=== PATIENT | female | born 1955 | race African-American/Black ===

== ENCOUNTER 2019-11-08 19:06 | Emergency (ER) | payer SELFPAY ==
[2019-11-08 19:08] VITALS: BP 163/86; PULSE 88; RESP 18; TEMP 36.9; O2SAT 99
--- NOTE | 2019-11-08 20:15 | ED.GENADULT ---
HPI - General Adult General Chief complaint: Dental/Oral Stated complaint: Right Side Tooth Pain and Swelling Time Seen by Provider: 11/08/19 19:25 Source: patient Mode of arrival: ambulatory Limitations: no limitations History of Present Illness HPI narrative: Patient is a 64-year-old female who presents with right-sided facial pain and dental pain followed by the dental school patient was placed on amoxicillin Sunday but has had continued pain and swelling since patient denies any fever chills nausea vomiting presents in no distress has been taking ibuprofen with some improvement Related Data Home Medications Medication Instructions Recorded Confirmed amoxicillin 11/08/19 Allergies Allergy/AdvReac Type Severity Reaction Status Date / Time Sulfa (Sulfonamide Allergy Unknown Swelling Verified 11/08/19 19:52 Antibiotics) Review of Systems Review of Systems: All systems reviewed & are unremarkable except as noted in HPI and below PMFSH Past Medical History Medical History (Updated 11/08/19 @ 20:18 by Daniel Sandoval PA-C) Obese Social History Social History (Updated 11/08/19 @ 20:16 by Daniel Sandoval PA-C) Smoking status: Never smoker Gender identity (if verbalized by the patient): Female Exam Narrative: Exam Narrative: GENERAL: Well-appearing, well-nourished, and in no acute distress. HEAD: Normocephalic, atraumatic. Right-sided facial swelling without erythema or fluctuance EYES: PERRLA and EOMI. ENT: Nares clear, no rhinorrhea or epistaxis. Mucous membranes moist. Oropharynx without tonsillar hypertrophy exudate. Gross dental decay with tenderness along the right upper incisors NECK: Supple. No adenopathy or masses. CHEST: Clear to auscultation. No respiratory distress. No wheezes rales or rhonchi HEART: Regular rate and rhythm. No murmur heard. EXTREMITIES: Normal range of motion. No edema. SKIN: Warm, dry, no rash. NEURO: No focal deficits. Alert and oriented x3. Cranial nerves II through XII grossly intact PSYCH: Normal mood and affect. Course Course Emergency Course: Patient in the room in no distress aware of case findings treatment plan and diagnosis Vital Signs Vital signs: Vital Signs Temperature 98.5 F 11/08/19 19:08 Pulse Rate 88 11/08/19 19:08 Respiratory Rate 18 11/08/19 19:08 Blood Pressure 163/86 H 11/08/19 19:08 Pulse Oximetry 99 11/08/19 19:08 Temperature 98.5 F 11/08/19 19:08 Pulse Rate 88 11/08/19 19:08 Respiratory Rate 18 11/08/19 19:08 Blood Pressure 163/86 H 11/08/19 19:08 Pulse Oximetry 99 11/08/19 19:08 Procedures Other Procedure Procedure 1: Other Procedure: 18-gauge needle used to make single straight incision along the anterior upper incisors with purulence obtained Medical Decision Making MDM Narrative Medical decision making narrative: Patient in the room in no distress at this time with dental abscess single straight incision was used to I&D the abscess with purulence obtained patient will be continued on her antibiotics provided with reasons to return is felt appropriate for outpatient reevaluation with continued care by the dental school. Floor of the mouth is soft uvula midline no trismus or drooling Vital Signs Vital Signs: Vital Signs Temperature 98.5 F 11/08/19 19:08 Pulse Rate 88 11/08/19 19:08 Respiratory Rate 18 11/08/19 19:08 Blood Pressure 163/86 H 11/08/19 19:08 Pulse Oximetry 99 11/08/19 19:08 Temperature 98.5 F 11/08/19 19:08 Pulse Rate 88 11/08/19 19:08 Respiratory Rate 18 11/08/19 19:08 Blood Pressure 163/86 H 11/08/19 19:08 Pulse Oximetry 99 11/08/19 19:08 Discharge Plan Discharge Clinical Impression: Dental abscess Patient Disposition: Home, Self-Care Condition: Stable Instructions: Antibiotic Form, Dental Abscess (ED) Additional Instructions: Follow-up with dentistry in 1 week. go to ER for shortness of breath, diffi
== END 2019-11-08 20:33 | disposition home or self-care (01) ==
PROVIDERS: Emergency Provider Emergency Medicine; PCP Family Medicine
DX: K04.7 Periapical abscess without sinus (principal); E66.9 Obesity, unspecified; Z68.37 Body mass index [BMI] 37.0-37.9, adult
CPT/HCPCS: 41800; 99283; A9270

== ENCOUNTER 2020-08-10 14:27 | Outpatient (CLI) | payer OTHER, SELFPAY | END 2020-08-10 14:28 | disposition home or self-care (01) | LOC: ANHCOVIDVC 14:27 | PROVIDERS: PCP Family Medicine | DX: Z23 Encounter for immunization (principal) | CPT/HCPCS: 0001A; 91300 ==

== ENCOUNTER 2020-08-31 14:29 | Outpatient (CLI) | payer OTHER, SELFPAY | END 2020-08-31 14:30 | disposition home or self-care (01) | LOC: ANHCOVIDVC 14:30 | PROVIDERS: PCP Family Medicine | DX: Z23 Encounter for immunization (principal) | CPT/HCPCS: 0002A; 91300 ==

== ENCOUNTER 2020-09-25 15:57 | Emergency (ER) | payer SELFPAY ==
--- NOTE | ~2020-09-25 | XR_ITS ---
EXAMINATION: XR ankle RT min 3V, XR foot RT min 3V DATE: 09/25/2020 16:26 INDICATION: Right ankle injury after kicking a bedpost. TECHNIQUE: 1. Anteroposterior, mortise, additional oblique and lateral view of the right ankle were obtained. 2. Dorsoplantar, two oblique and lateral views of the right foot were obtained. COMPARISON: None. FINDINGS: Alignment of the foot and ankle is normal. No fracture or osteochondral lesion. Polyarticular osteoar thritis, mild at the first metatarsophalangeal joint and minimal at multiple additional joints right foot. No ankle joint effusion. Small to moderate-sized Achilles and plantar calcaneal spurs. Mild sof t tissue swelling about the lateral malleolus. IMPRESSION: 1. No acute osseous abnormality. Reviewed, dictated and finalized at location A. IMPRESSION: 1. No acute osseous abnormality.
[2020-09-25 16:14] VITALS: BP 147/65; PULSE 94; RESP 16; TEMP 36.9; O2SAT 99
--- NOTE | 2020-09-25 16:31 | ED.LOWEXIN ---
HPI - Extremity Injury (Lower) General Chief Complaint: Extremity Injury, Lower Stated Complaint: right foot pain Source: patient Mode of arrival: ambulatory Limitations: no limitations History of Present Illness HPI Narrative: Patient is a 64-year-old female who presents complaining of right foot pain. Patient reports trip and fall hitting right foot on bed approximately 3 days ago. She reports tenderness and difficulty with ambulation since. She denies other injuries. Patient is not on blood thinners. Patient is ambulating slowly with a cane. She reports history of fracture in same foot previously. She denies taking dhht-oml-dlsacxy medications for pain at this time. Related Data Home Medications Medication Instructions Recorded Confirmed cetirizine 10 mg capsule 10 mg PO DAILY 01/07/20 03/10/20 cyclobenzaprine 5 mg tablet 5 mg PO TID 01/07/20 03/10/20 epinephrine 0.3 mg/0.3 mL 0.3 mg IM ONCE 01/07/20 03/10/20 injection, auto-injector albuterol sulfate 90 mcg/actuation 1 puff INHALATION Q4H PRN 03/10/20 03/10/20 aerosol inhaler phentermine 37.5 mg capsule 37.5 mg PO DAILY 03/10/20 03/10/20 Allergies Allergy/AdvReac Type Severity Reaction Status Date / Time lisinopril Allergy Severe swelling ( Verified 03/10/20 08:22 reported by patient) naproxen Allergy Unknown sedation Verified 03/10/20 08:22 Sulfa (Sulfonamide Allergy Unknown Swelling Verified 03/10/20 08:22 Antibiotics) Review of Systems Review of Systems: Narrative: CONSTITUTIONAL: Denies fever, chills, or sweats. EYES: Denies visual changes, redness, or discharge. ENT: Denies rhinorrhea, congestion, sore throat, or otalgia. CARDIOVASCULAR: Denies chest pain, palpitations, or edema. RESPIRATORY: Denies cough or dyspnea. GASTROINTESTINAL: Denies abdominal pain, nausea, vomiting, or diarrhea. GENITOURINARY: Denies dysuria or hematuria. SKIN: Denies rash or itching. MUSCULOSKELETAL: Right foot pain NEUROLOGIC: Denies headache, numbness, dizziness, or weakness. PSYCHIATRIC: Denies anxiety or depression. [facility] Past Medical History Medical History Allergies Asthma Bilateral sacroiliitis (~2016) Obese Osteoporosis Rotator cuff arthropathy of both shoulders Surgical History Surgical History History of cholecystectomy History of endometrial ablation Hx of breast reduction, elective S/P foot surgery, right Family History Family History Mother Hypertension Cerebrovascular accident Father COPD (chronic obstructive pulmonary disease) Cirrhosis of liver Social History Social History Smoking status: Former smoker Tobacco type: cigarettes Alcohol intake: never Substance use: never Substance use type: does not use Gender identity (if verbalized by the patient): Female Spiritual care concerns: No Agree to blood products: Yes Comments At the time of signature, I have reviewed and agree with nursing past medical, surgical, social, and family history unless otherwise noted. Please see nursing chart for further information. There is no relevant family history pertinent to the presenting complaint. Exam Narrative: Exam Narrative: GENERAL: Well-appearing, well-nourished, and in no acute distress. HEAD: Normocephalic, atraumatic. EYES: EOMI. No redness or drainage. Conjunctiva are normal. ENT: Mucous membranes pink and moist. . CHEST: No respiratory distress. HEART: Regular rate and rhythm. MUSCULOSKELETAL: No bony tenderness. EXTREMITIES: Mild edema to right foot, tenderness with palpation at 1st metatarsal. Distal sensation intact, good capillary refill SKIN: Warm, dry, no rash. NEURO: No focal deficits. Alert and oriented x3. Gait steady. PSYCH: Normal affect. No signs of depression or anxiety
== END 2020-09-25 17:06 | disposition home or self-care (01) ==
PROVIDERS: Emergency Provider Nurse Practitioner; PCP Family Medicine
DX: S93.601A Unspecified sprain of right foot, initial encounter (principal); W01.0XXA Fall on same level from slipping, tripping and stumbling without subsequent striking against object, initial encounter; M19.071 Primary osteoarthritis, right ankle and foot; Z87.891 Personal history of nicotine dependence; J45.909 Unspecified asthma, uncomplicated; M81.0 Age-related osteoporosis without current pathological fracture
CPT/HCPCS: 73610; 73630; 99213; G0463

== ENCOUNTER 2023-10-27 14:04 | Emergency (ER) | payer MEDICARE, SELFPAY ==
--- NOTE | 2023-10-27 14:13 | ED.GENADULT ---
HPI - General Adult General Chief complaint: Skin/Abscess/Foreign Body Stated complaint: SPIDER BITE Time Seen by Provider: 10/27/23 14:13 Source: patient Mode of arrival: ambulatory Limitations: no limitations History of Present Illness HPI narrative: 68-year-old female patient presents to the [facility] accompanied with her daughter with complaints of a wound to the back of the right leg. Patient states she had a spider bite about a week ago. Patient states she knew was a spider because she did killed the spider in her pants and did see the spider. Patient states she went to [facility] 4 treatments and was put on doxycycline for about 7 days. Patient states that she finished the doxycycline about a tear to ago but continues to have worsening symptoms. Patient states that the redness around the bite area has worsened, the pain to the knee and the leg has worsen, increase in swelling, and has developed body aches and chills. Patient denies any history of type 2 diabetes however she did have a knee replacement in that knee about a year ago. Patient states she is having trouble walking on that leg. Related Data Home Medications Medication Instructions Recorded Confirmed cetirizine 10 mg capsule (Zyrtec) 10 mg PO DAILY 01/07/20 10/27/23 epinephrine 0.3 mg/0.3 mL 0.3 mg IM ONCE 01/07/20 10/27/23 injection, auto-injector (EpiPen) albuterol sulfate 90 mcg/actuation 1 puff inhalation Q4H PRN Wheezing 03/10/20 10/27/23 aerosol inhaler Allergies Allergy/AdvReac Type Severity Reaction Status Date / Time lisinopril Allergy Severe swelling ( Verified 10/27/23 14:12 reported by patient) naproxen Allergy Unknown sedation Verified 10/27/23 14:12 Sulfa (Sulfonamide Allergy Unknown Swelling Verified 10/27/23 14:12 Antibiotics) Review of Systems Review of Systems: CONSTITUTIONAL: Denies fever, Positive body aches and chills, denies sweats. EYES: Denies visual changes, redness, or discharge. ENT: Denies rhinorrhea, congestion, sore throat, or otalgia. CARDIOVASCULAR: Denies chest pain, palpitations, or edema. RESPIRATORY: Denies cough or dyspnea. GASTROINTESTINAL: Denies abdominal pain, nausea, vomiting, or diarrhea. GENITOURINARY: Denies dysuria or hematuria. SKIN: Denies rash or itching. positive spider bite to posterior right leg MUSCULOSKELETAL: Denies back pain, joint pain, or myalgia. positive right leg pain and knee pain with swelling NEUROLOGIC: Denies headache, numbness, or weakness. PSYCHIATRIC: Denies anxiety or depression. [facility] Past Medical History Medical History (Updated 10/27/23 @ 14:41 by EVGENY Cavazos) Allergies Asthma Bilateral sacroiliitis (~2016) Obese Osteoporosis Rotator cuff arthropathy of both shoulders Surgical History Surgical History (Updated 10/27/23 @ 14:36 by EVGENY Cavazos) History of bilateral knee replacement History of cholecystectomy History of endometrial ablation Hx of breast reduction, elective S/P foot surgery, right Family History Family History Mother Hypertension Cerebrovascular accident Father COPD (chronic obstructive pulmonary disease) Cirrhosis of liver Social History Social History Smoking status: Former smoker Tobacco type: cigarettes Alcohol intake: never Substance use: never Substance use type: does not use Living arrangements: alone Occupation/Education: unemployed Gender identity (if verbalized by the patient): Female Spiritual care concerns: No Agree to blood products: Yes Comments At the time of my signature I agree with nursing past medical history, surgical, social, and family history. There is no relevant family history pertinent to the presenting complaint. Exam Narrative: GENERAL: Well-appearing, well-nourished, and in no acute distress. HEAD: Normocephalic, atraum
[2023-10-27 14:17] VITALS: BP 130/77; PULSE 92; RESP 16; TEMP 35.9; O2SAT 100
[2023-10-27] MEDS: ACETAMINOPHEN 500 MG TABLET 1000 MG PO (14:35)
== END 2023-10-27 14:44 | disposition short-term general hospital (02) ==
PROVIDERS: Emergency Provider Nurse Practitioner Family
DX: L03.115 Cellulitis of right lower limb (principal); S80.261A Insect bite (nonvenomous), right knee, initial encounter; W57.XXXA Bitten or stung by nonvenomous insect and other nonvenomous arthropods, initial encounter; Z87.891 Personal history of nicotine dependence; J45.909 Unspecified asthma, uncomplicated; E66.9 Obesity, unspecified; Z68.38 Body mass index [BMI] 38.0-38.9, adult; M81.0 Age-related osteoporosis without current pathological fracture; Z96.653 Presence of artificial knee joint, bilateral
CPT/HCPCS: 99202; A9270; G0463

== ENCOUNTER 2023-10-27 14:59 | Emergency (ER) | payer MEDICARE, SELFPAY ==
--- NOTE | ~2023-10-27 | US_ITS ---
EXAMINATION: US venous doppler LE RT DATE: 10/27/2023 18:02 INDICATION: Right lower limb pain and swelling. TECHNIQUE: Grayscale ultrasound images without and with compression and Doppler ultrasound images of the right lower extremity veins were obtained. COMPARISON: Ultrasound 06/12/2015 FINDINGS: The visualized portions of right common femoral vein, profunda (deep) femoral vein, femoral vein, pop liteal vein, peroneal veins, posterior tibial veins, and greater saphenous vein outflow are patent. IMPRESSION: 1. No deep venous thrombosis. Reviewed, dictated and finalized at location E.
[2023-10-27 15:05] VITALS: BP 132/88; PULSE 84; RESP 18; TEMP 36.6; O2SAT 100
[2023-10-27 16:47] VITALS: BP 136/106; PULSE 88; RESP 16; TEMP 36.7; O2SAT 100
--- NOTE | 2023-10-27 17:16 | ED.GENADULT ---
HPI - General Adult General Chief complaint: Wound/Laceration Stated complaint: spider bite Time Seen by Provider: 10/27/23 16:29 History of Present Illness HPI narrative: 68-year-old female presenting to the emergency department for evaluation for left leg pain. Patient was diagnosed with cellulitis on the was started on 7 days of antibiotics, doxycycline b.i.d.. Patient did complete this round of antibiotics with a still having some localized pain and swelling. Patient denies any prior history of DVT. Related Data Home Medications Medication Instructions Recorded Confirmed cetirizine 10 mg capsule (Zyrtec) 10 mg PO DAILY 01/07/20 10/27/23 epinephrine 0.3 mg/0.3 mL 0.3 mg IM ONCE 01/07/20 10/27/23 injection, auto-injector (EpiPen) albuterol sulfate 90 mcg/actuation 1 puff inhalation Q4H PRN Wheezing 03/10/20 10/27/23 aerosol inhaler Allergies Allergy/AdvReac Type Severity Reaction Status Date / Time lisinopril Allergy Severe swelling ( Verified 10/27/23 15:08 reported by patient) naproxen Allergy Unknown sedation Verified 10/27/23 15:08 Sulfa (Sulfonamide Allergy Unknown Swelling Verified 10/27/23 15:08 Antibiotics) Review of Systems Review of Systems: All systems reviewed & are unremarkable except as noted in HPI and below PMFSH Past Medical History Medical History (Updated 10/27/23 @ 18:33 by Ascencion García MD) Allergies Asthma Bilateral sacroiliitis (~2015) Obese Osteoporosis Rotator cuff arthropathy of both shoulders Surgical History Surgical History (Updated 10/27/23 @ 14:36 by EVGENY Cavazos) History of bilateral knee replacement History of cholecystectomy History of endometrial ablation Hx of breast reduction, elective S/P foot surgery, right Family History Family History Mother Hypertension Cerebrovascular accident Father COPD (chronic obstructive pulmonary disease) Cirrhosis of liver Social History Social History Smoking status: Former smoker Tobacco type: cigarettes Alcohol intake: never Substance use: never Substance use type: does not use Living arrangements: alone Occupation/Education: unemployed Gender identity (if verbalized by the patient): Female Spiritual care concerns: No Agree to blood products: Yes Exam Narrative: APPEARANCE: Well appearing, no pain, no distress, well-nourished. HEAD: normocephalic, atraumatic. EYES: PERRLA/EOMI, conjunctivae clear. NOSE: Normal no drainage NECK: Supple. No adenopathy, no masses. RESPIRATORY: Airway patent, respirations nonlabored. Clear to auscultation bilaterally, no rales, rhonchi, wheezing. CARDIOVASCULAR: Regular rate and rhythm without murmurs rubs or gallops. ABDOMINAL: Soft, nontender, nondistended, normal bowel sounds MUSCULOSKELETAL: Moves all extremities. Strength/ROM intact, No edema, No calf tenderness. NEURO: Alert. Cranial nerves II through XII intact. Good gait. Good coordination SKIN: Area of cellulitis in the posterior left calf with no abscess noted. Overlying blister Course Vital Signs Vital signs: Vital Signs Temperature 97.8 F 10/27/23 15:05 Pulse Rate 84 10/27/23 15:05 Respiratory Rate 18 10/27/23 15:05 Blood Pressure 132/88 10/27/23 15:05 Pulse Oximetry 100 10/27/23 15:05 Oxygen Delivery Room Air 10/27/23 15:05 Temperature 98.0 F 10/27/23 18:01 Pulse Rate 80 10/27/23 18:31 Respiratory Rate 16 10/27/23 18:31 Blood Pressure 160/64 H 10/27/23 18:31 Pulse Oximetry 100 10/27/23 18:31 Oxygen Delivery Room Air 10/27/23 15:05 Medical Decision Making MDM Narrative Medical decision making narrative: 68-year-old female presents to the emergency department for evaluation for a cellulitis of her posterior left calf. Patient is afebrile with no leukocytosis and a stable hemoglobin. No acut
[2023-10-27 17:31] VITALS: BP 148/72; PULSE 86; RESP 16; TEMP 36.6; O2SAT 100
[2023-10-27 17:46] LABS: Basophils Percent Auto 0.6 % (0.2-1.2); Eosinophils Absolute Auto 0.2 K/mm3 (0-0.3); Eosinophils Percent Auto 4.3 % (0-4.4); Hematocrit 33.3 % (37.0-47.0); Hemoglobin 11.2 g/dL (12.0-15.0); Immature Granulocyte Absolute 0.01 K/mm3 (0.00-0.031); Immature Granulocyte Percent A 0.2 % (0-0.5); Lymphocytes Absolute Auto 1.43 K/mm3 (0.9-3.2); Lymphocytes Percent Auto 26.5 % (18.3-44.2); Mean Corpuscular HGB Conc 33.6 g/dl (32-36); Mean Corpuscular Hemoglobin 29.1 pg (26-34); Mean Corpuscular Volume 86.5 fl (80-100); Mean Platelet Volume 10.8 fl (7.4-10.4); Monocytes Absolute Auto 0.4 K/mm3 (0.1-0.6); Monocytes Percent Auto 7.1 % (2.6-8.5); Neutrophils Absolute Auto 3.3 K/mm3 (1.3-6.7); Neutrophils Percent Auto 61.3 % (45.5-73.1); Platelet Count Result 225 k/mm3 (150-375); Red Blood Count 3.85 M/mm3 (4.2-5.4); Red Cell Distribution Width 14.6 % (11.5-14.5); White Blood Count 5.4 K/mm3 (4.5-10.0)
[2023-10-27 17:58] LABS: Alanine Aminotransferase 14 U/L (6-35); Albumin Level 4.3 g/dL (3.5-5.1); Alkaline Phosphatase 91 U/L (38-126); Anion Gap 6 mmol/L (4-12); Aspartate Amino Transferase 27 U/L (14-36); Bilirubin,Total 0.7 mg/dL (0.2-1.3); Blood Urea Nitrogen 13 mg/dL (7-17); Calcium 9.2 mg/dL (8.4-10.2); Carbon Dioxide 25 mmol/L (22-30); Chloride 110 mmol/L (98-107); Estimated CRCL calculation 81 ml/min; Estimated Glomerular Filt Rate > 60; Glucose 92 mg/dL (65-110); Sodium 141 mmol/L (137-145)
[2023-10-27 18:01] VITALS: BP 149/64; PULSE 82; RESP 16; TEMP 36.7; O2SAT 100
[2023-10-27 18:31] VITALS: BP 160/64; PULSE 80; RESP 16; O2SAT 100
[2023-10-27] MEDS: CLINDAMYCIN HCL 150 MG CAP 300 MG PO (18:41)
== END 2023-10-27 18:52 | disposition home or self-care (01) ==
PROVIDERS: Emergency Provider Emergency Medicine
DX: L03.115 Cellulitis of right lower limb (principal); J45.909 Unspecified asthma, uncomplicated; M81.0 Age-related osteoporosis without current pathological fracture; E66.9 Obesity, unspecified; Z68.38 Body mass index [BMI] 38.0-38.9, adult; Z96.653 Presence of artificial knee joint, bilateral; Z90.49 Acquired absence of other specified parts of digestive tract; Z87.891 Personal history of nicotine dependence
CPT/HCPCS: 36415; 80053; 85025; 93971; 99284; A9270

== ENCOUNTER 2024-10-14 10:52 | Outpatient (CLI) | payer MEDICARE, SELFPAY ==
--- OUTSIDE RECORDS SUMMARY | 2024-10-14 11:06 | XMS_ITS | Clinical Summary ---
Author Organization [facility] Address [address] [place] [address] Care Team Providers Care Polymerization Supervisor Name Role Phone Zion Burris MD Unavailable [phone] Daniella Sykes MD Primary Care Provider + Allergies Active Allergy Reactions Criticality Noted Date Comments Lisinopril Angioedema High 02/09/2022 Swelling of face and tongue Medications hydroCHLOROthia zide (HYDRODIURIL) 12.5 mg tablet Take 12.5 mg by mouth daily Active cyclobenzaprine (FLEXERIL) 10 mg tablet Take 10 mg by mouth 3 (three) times a day Active montelukast (SINGULAIR) 10 mg tablet Take 10 mg by mouth nightly Active cetirizine (ZyrTEC) 10 mg tablet Take 10 mg by mouth daily Active biotin 2,500 mcg capsule Take 5,000 Units by mouth daily Active turmeric root extract 500 mg capsule Take 1 tablet by mouth daily Active UNABLE TO FIND Med Name: peoples choice apple cider vinegar for weight loss. One tablet tid. Active EPINEPHrine 0.3 mg/0.3 mL auto-injection syringeIndicati ons:Anaphylaxis Inject 1 Syringe into the muscle as instructed as needed for anaphylaxis Active albuterol HFA (PROVENTIL HFA,VENTOLIN HFA,PROAIR HFA) 90 mcg/actuation inhaler Inhale 2 puffs every 6 (six) hours as needed for wheezing Active albuterol 5 mg/mL nebulizer solution Take 2.5 mg by nebulization every 6 (six) hours as needed for wheezing Last used with Covid 06/2021 Active oxyCODONE-aceta minophen (PERCOCET) 5-325 mg per tabletIndicatio ns:Pain Take 1-2 tablets by mouth every 6 (six) hours as needed for pain 8 tablet 2 Active Surgical History Surgery Date Site/Laterality Comments APPENDECTOMY 05/28/1999 - 05/27/2000 CHOLECYSTECTOMY 05/28/2001 - 05/27/2002 ORIF FOOT FRACTURE 05/28/1998 - 05/27/1999 Right SHOULDER SURGERY 05/28/2003 - 05/27/2004 Right rotator cuff SHOULDER SURGERY 05/28/2009 - 05/27/2010 Left rotator cuff REDUCTION MAMMAPLASTY 05/28/2000 - 05/27/2001 JOINT REPLACEMENT 11/13/2018 Left ABLATION 05/28/2009 - 05/27/2010 uterine Medical History Medical History Date Comments Hypertension High cholesterol Asthma Pneumonia hx GERD (gastroesophageal reflux disease) Covid-19 04/2019 + 2. no hospital stay Anemia Family History Medical History Relation Name Comments Gout Mother Family history of gout - (Added by TW Conv) Lupus Sister Family history of systemic lupus erythematosus - (Added by TW Conv) Relation Name Status Comments Mother Sister Social History Tobacco Use Types Packs/Day Years Used Date Smoking Tobacco: Former Cigarettes 1 46 1 2019 Passive Smoke Exposure: Never Tobacco Cessation:Counseling Given: Not Answered AUDIT-C Answer Date Recorded Q1: How often do you have a drink containing alc ohol? Never 02/09/2022 Average Number of Drinks Not on file 022 Frequency of Binge Drinking Not on file 01/26 Comments Unknown Sex and Gender Information Value Date Recorded Sex Assigned at Not on file Legal Sex Female 8:35 PM WEB CONTENT COORDINATOR Gender Identity Not on file Sexual Orientation Not on file Obstetrics History Last Filed Vital Signs Vital Sign Reading Time Taken Comments Blood Pressure 160/88 02/13/2022 12:40 PM CDT Pulse 70 02/13/2022 12:40 PM CDT Temperature 36.1 C (97 F) 02/13/2022 12:10 PM CDT Respiratory Rate 16 02/13/2022 12:4 0 PM CDT Oxygen Saturation 100% 02/13/2022 12: 40 PM CDT Inhaled Oxygen Concentration - - Weight 107.2 kg (236 lb 4.8 oz) 02/13/2022 8:46 AM CDT Height 165.1 cm (5' 5 ) 02/13/2022 8:46 AM CDT Body Mass Index 39.32 02/13/2022 8:46 AM CDT Plan of Treatment Health Maintenance Due Date Last Done Comments Colon Cancer Screening-Colonoscopy 1955 Depression Screening 1955 DTaP/Tdap/Td Vaccine (1 - Tdap) 10/25/1967 Hepatitis B Screening 1974 Pneumococcal vaccine 65+ (1 of 2 - PCV) 10/25/1975 Zoster Vaccine (1 of 2) 2006 Well Visit 65+ 2021 Fall Risk Assessment 02/13/2023 02/13/2022 Covid-19 Vaccine ( season) 2024 05/19/2021, 08/31/2020, 08/10/2020 Osteoporosis Screening-Bone Density Scan 03/13/2024 03/13/2022 Breast Cancer Screening-Mammogram 03/21/2024 023, 03/14/2022 Influenza Vaccine (Season Ended) 2025 03/22/2021, 03/20/2020, 02/23/2009 Hepatitis C Screening Completed 09/24/2015 Procedures Procedure Name Priority Date/Time Associated Diagnosis Comments SERUM HEPATITIS C AB Routine 09/24/2015 4:49 AM CDT from Last 3 Months or Most Recently Relevant to Health Maintenance Results * Serum Hepatitis C ab (09/24/2015 4:49 AM CDT) HCV ab Negative NEG HISTORICAL RESULTS Serum 09/24/2015 4:49 AM CDT Narrative HISTORICAL RESULTS - 09/24/2015 8:11 AM CDT Interpretive Data If confirmation is required, call Laboratory Customer Service to request sample to be sent to [facility] for Hepatitis C Virus (HCV) RNA Detection and Quantitation by Real-Time Reverse Crusher And Blender Operator-PCR (RT-PCR). Current interpretive data was last revised on 2011 us Melani Jordan SENIOR PROGRAM PLANNER LAB BLOOD ORDERABLES Final Result HISTORICAL RESULTS from Last 3 Months or Most Recently Relevant to Health Maintenance Insurance [employer] HMO MEDICARE O [employer] HMO IDPA Care Teams Polymerization Supervisor Relationship Specialty Start Date End Date Daniella Sykes MD [address] [place] [id number] PCP - General Family Medicine 12/06/23 Zion Burris MD [address] [place] [id number] Consulting Physician General Surgery 02/13/22
--- OUTSIDE RECORDS SUMMARY | 2024-10-14 11:06 | XMS_ITS | Clinical Summary ---
Author Organization [facility] [employer] Address [address] [place] [address] Care Team Providers Care Grain Elevator Agent Name Role Phone Adis Costa MD Primary Care Provider [phone] [facility] [employer],non-owned Affiliates and Associated Physician Practices is amultiple site organization consisting of ambulatory clinics and hospital sitesin [place], [place], [place] and [place]. This disclosure is being madepursuant to the Care Everywhere program and may not contain all information available regarding this patient. Last updated 18.[facility] [employer] Allergies Active Allergy Reactions Criticality Noted Date Comments Lisinopril Angioedema High 02/09/2022 Swelling of face and tongue Sulfa Drugs Urticaria Medium 01/26/2016 Medications * Be aware that medications may not be up to date on this document. Alwaysverify current medications with the patient. hydroCHLOROthia zide (MICROZIDE) 12.5 MG capsule once daily Act nagi Biotin 1 MG 5,000 mcg once daily Active cetirizine (ZYRTEC) 10 MG tablet Take 1 (one) tablet by mouth once daily Active albuterol HFA (PROVENTIL;VENT JONO;PROAIR) 108 (90 Base) MCG/ACT inhaler Inhale 2 (two) puffs by mouth every 6 hours as needed Active albuterol (PROVENTIL;VENT JONO) (5 MG/ML) 0.5% nebulizer solution Inhale 0.5 mL by mouth 4 times daily as needed for Shortness of Breath or Wheezing Active EPINEPHrine (EPIPEN IJ) by Injection route as needed Active montelukast (Singulair) 10 MG tablet 2 Active Turmeric 500 MG Take 1 tablet by mouth once daily Active oxyCODONE, immediate release, (Roxicodone) 5 MG tabletIndicatio ns:Acute Pain Take 1 (one) tablet by mouth every 6 hours as needed for Pain Reasons: Acute Pain 28 tablet 3 Active amoxicillin (Amoxil) 500 MG capsule Take 4 (four) capsules by mouth 1 Hour prior to Dental Appointment 4 capsule 3 3 Active Active Problems Problem Noted Date Diagnosed Date Primary osteoarthritis of right knee 08/08/2022 Primary osteoarthritis of left knee 11/15/2018 Family History Medical History Relation Name Comments Hypertension Mother Relation Name Status Comments Mother Social History Tobacco Use Types Packs/Day Years Used Date Smoking Tobacco: Former Cigarettes Q uit: 2006 Smokeless Tobacco: Never Alcohol Use Standard Drinks/Week Comments No 0 (1 standard drink = 0.6 oz pur e alcohol) AUDIT-C Answer Date Recorded Q1: How often do you have a drink containing alcohol? Never 11/29/2022 Q2: How many drinks containi ng alcohol do you have on a typical day when you are drinking? Patient does not drink Q3: How often do you have si x or more drinks on one occasion? Never 11/29/2022 Overall Financial Resource Strain (CARDIA) Answe r Date Recorded How hard is it for you to pa y for the very basics like food, housing, medical care, and heating? Not hard at all 11/30/2022 [facility] Occupat ional Health - Occupational Stress Questionnaire Answer Date Recorded Do you feel stress - tense, restless, nervous, or anxious, or unable to sleep at night because your mind is troubled all the time - these days? Not at all 11/30/2022 Hunger Vital Sign Answer Date Recorded Within the past 12 months, y ou worried that your food would run out before you got the money to buy more. Never true 12/01/19 23 Within the past 12 months, t he food you bought just didn't last and you didn't have money to get more. Never true 11/30/2022 PRAPARE - Transportation Answer Date Re corded In the past 12 months, has l ack of transportation kept you from medical appointments or from getting medications? No 10/2022 In the past 12 months, has l ack of transportation kept you from meetings, work, or from getting things needed for daily living? No 11/30/2022 Housing Stability Vital Sign Answer Álvaro e Recorded In the last 12 months, was t here a time when you were not able to pay the mortgage or rent on time? No 11/30/2022 In the last 12 months, how many places have you lived? 1 11/30/2022 In the last 12 months, was t here a time when you did not have a steady place to sleep or slept in a snf (including now)? 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 Gender Identity Not on file Sexual Orientation Not on file Last Filed Vital Signs Vital Sign Reading Time Taken Comments Blood Pressure 128/59 11/30/2022 7:33 AM CDT Pulse 66 11/30/2022 7:33 AM CDT Temperature 36.5 C (97.7 F) 11/30/2022 7:33 AM CDT Respiratory Rate 18 11/30/2022 7:33 AM CDT Oxygen Saturation 95% 11/30/2022 7:33 AM CDT Inhaled Oxygen Concentration - - Weight 110.1 kg (242 lb 12.8 oz) 11/29/2022 6:33 AM CDT Height 161.9 cm (5' 3.75 ) 11/29/2022 6:33 AM CD T stated Body Mass Index 42 11/29/2022 6:33 AM CDT Plan of Treatment Health Maintenance Due Date Last Done Comments BONE DENSITY TESTING 1955 COLOGUARD (AGES 45-75) - COL ON CA SCREENING 1956 COLON MONITORING 1956 COLONOSCOPY - COLON CA SCREENING 1956 CT COLONOGRAPHY - COLON CA SCREENING 1956 Colorectal Cancer Screening 1956 FIT - COLON CA SCREENING 1956 FLEX SIG - COLON CA SCREENING 1956 LIPID TESTING 1956 MAMMOGRAM 1956 HEPATITIS C SCREENING 10/20/1974 DTAP/TDAP/TD VACCINES (1 - Tdap) 10/25/1975 PNEUMOCOCCAL VACCINE 50+ (1 of 1 - PCV) 2006 ZOSTER VACCINE (1 of 2) 2006 Respiratory Syncytial Virus (RSV) Vaccine Pt: or over 60 yrs (1 - Risk 60-74 years 1-dose series) 2016 COVID-19 VACCINE (1 - 2023-2 5 season) 2024 DEPRESSION SCREENING 05/28/2024 MEDICARE AWV CALENDAR YEAR 2024 INFLUENZA VACCINE (Season Ended) 2025 SCREENING FOR DIABETES 10/26/2025 , 12/16/2018 HEPATITIS B VACCINE Aged Out No longe r eligible based on patient's age to complete this topic HIB VACCINE Aged Out No longer eligi ble based on patient's age to complete this topic HPV VACCINE Aged Out No longer eligi ble based on patient's age to complete this topic MENINGOCOCCAL (Group B) VACCINE SHARED DECISION-MAKING Aged Out No longer eligible based on patient's age to complete this topic MENINGOCOCCAL GROUPS A/C/Y/W VACCINE Aged Out No longer eligible b ased on patient's age to complete this topic Medical Devices Implanted Type Area Chief Engineer'S Helper Device Identifier Shelf Expiration Date Model / Serial / Lot Cmnt Bone Cblt 40gm Hvisc Strl Implanted:Qty: 1 on 01/13/2019 by Дмитрий Ndiaye MD at [facility] Left: Knee [employer] 11/21/2019 [id number] / / [id number] Cmpnt Ptlr 28mm 1 Pg Wire Ascnt Arcm Kn Implanted:Qty: 1 on 01/13/2019 by Дмитрий Ndiaye MD at [facility] Left: Knee [employer] 12/14/2023 [id number] / / [id number] Tray Tib 71mm Kn Cocr I Beam Implanted:Qty: 1 on 01/13/2019 by Дмитрий Ndiaye MD at [facility] Left: Knee [employer] 10/14/2028 [id number] / / [id number] Cmpnt Fem Kn Lt Cr Cmnt Prm Vngrd Intlk Implanted:Qty: 1 on 01/13/2019 by Дмитрий Ndiaye MD at [facility] Left: Knee [employer] [id number] / / [id number] Brng [id number] Vngrd Arcm Kn Ant Stab Implanted:Qty: 1 on 01/13/2019 by Дмитрий Ndiaye MD at [facility] Left: Knee [employer] 10/15/2023 [id number] / / [id number] Brng [id number] Vngrd Arcm Kn Ant Stab Implanted:Qty: 1 on 11/29/2022 by Дмитрий Ndiaye MD at [facility] Right: Knee [employer] 09/27/2027 [id number] / / [id number] Cmpnt Ptlr Std 28mm 3 Pg Kn Ser A Implanted:Qty: 1 on 11/29/2022 by Дмитрий Ndiaye MD at [facility] Right: Knee [employer] 10/26/2027 [id number] / / [id number] Cmpnt Fem Kn Rt Cr Cmnt Prm Vngrd Intlk Implanted:Qty: 1 on 11/29/2022 by Дмитрий Ndiaye MD at [facility] Right: Knee [employer] 10/17/2032 [id number] / / [id number] Tray Tib 71mm Kn Cocr I Beam Implanted:Qty: 1 on 11/29/2022 by Дмитрий Ndiaye MD at [facility] Right: Knee [employer] 09/04/2032 [id number] / / [id number] Cmnt Bone Plc R 40gm Grn Implanted:Qty: 1 on 11/29/2022 by Дмитрий Ndiaye MD at [facility] Right: Knee [employer] 04/26/2025 [id number] / / [id number] Procedures Procedure Name Priority Date/Time Associated Diagnosis Comments COMPREHENSIVE METABOLIC PANEL STAT 10/26/2022 1:26 PM CDT Preop examination from Last 3 Months or Most Recently Relevant to Health Maintenance Results * (ABNORMAL) COMPREHENSIVE METABOLIC PANEL (10/26/2022 1:26 PM CDT) Glucose 109(H) 70 - 105 mg/dL 10/26/2022 1:56 PM CDT [facility] Sodium 140 136 - 145 mmol/L 10/26/2022 1:56 PM CDT [facility] Potassium 3.8 3.5 - 5.1 mmol/L 10/26/2022 1:56 PM CDT [facility] Chloride 109(H) 98 - 107 mmol/L 10/26/2022 1:56 [facility] CO2 21(L) 23 - 31 mmol/L 10/26/2022 1:56 PM CDT [facility] Calcium 9.8 8.4 - 10.4 mg/dL 10/26/2022 1:56 PM [facility] Anion Gap 10 8 - 18 mmol/L 10/26/2022 1:56 PM CDT [facility] BUN 13 9.8 - 20.1 mg/dL 10/26/2022 1:56 PM CDT [facility] Creatinine 0.88 0.57 - 1.11 mg/dL 10/26/2022 1:56 PM [facility] Alkaline Phosphatase 98 40 - 150 U/L 10/26/2022 1:56 PM CDT [facility] ALT 12 0 - 61 U/L 10/26/2022 1:56 PM CDT [facility] AST 21 5 - 34 U/L 10/26/2022 1:56 PM [facility] Protein Total 8.1 6.4 - 8.3 gm/dL 10/26/2022 1:56 PM [facility] Albumin 4.3 3.2 - 4.6 gm/dL 10/26/2022 1:56 PM [facility] Bilirubin Total 0.9 0.2 - 1.2 mg/dL 10/26/2022 1:56 PM [facility] eGFR by CKD-EPI 72(L) >=90 mL/min/1.7 3 m2 10/26/2022 1:56 PM [facility] Blood BLOOD SPECIMEN / Unknown Venipuncture / Unknown 10/26/2022 1:26 PM CDT 10/26/2022 1:39 PM CDT Aura Donahue DOG FOOD SHREDDER OPERATOR-OPTICS MANUFACTURING TECHNICIAN LAB - CHEMISTRY OR DERABLES Final Result [facility] [address] [place] [address] from Last 3 Months or Most Recently Relevant to Health Maintenance Insurance [facility] Advance Directives * Full Code (Latest Code Status on File) Date Activated Date Inactivated Comments 11/29/2022 9:46 AM 11/30/2022 6:24 PM * Full Code Date Activated Date Inactivated Comments 01/13/2019 12:40 PM 01/16/2019 4:08 PM Care Teams Grain Elevator Agent Relationship Specialty Start Date End Date Adis Costa MD [facility] [place] [address] PCP - General Family Medicine 03/16/22
--- OUTSIDE RECORDS SUMMARY | 2024-10-14 11:06 | XMS_ITS | Referral Summary ---
Author Organization [facility] Address [address] [place] [address] Care Team Providers Care Memory Care Program Resident Name Role Phone Zion Burris MD Unavailable [phone] Daniella Sykes MD Primary Care Provider + [...] hours as needed for pain 8 tablet Active Social History Tobacco Use Types Packs/Day Years Used Date Smoking Tobacco: Former Cigarettes 1 46 2019 Passive Smoke Exposure: Never Tobacco Cessation:Counseling Given: Not Answered AUDIT-C Answer Date Recorded Q1: How often do you have a drink containing alc ohol? 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 Current interpretive data was last revised on 2011 us Melani Jordan PHOTOENGRAVING MACHINE OPERATOR/TENDER LAB BLOOD ORDERABLES Final Result HISTORICAL RESULTS from Last 3 Months or Most Recently Relevant to Health Maintenance Insurance [employer] MEDICARE HMO WE[employer] MEDICARE HMO WE[employer] MEDICARE HMO IDPA Care Teams Memory Care Program Resident Relationship Specialty Start Date End Date Daniella Sykes MD [address] [place] [id number] PCP - General Family Medicine 12/06/23 Zion Burris MD [address] [place] [address] [phone] Consulting Physician General Surgery 02/13/22
[2024-10-14 14:17] LABS: Influenza A QL RT-PCR Negative (Negative); Influenza B QL RT-PCR Negative (Negative); RSV RNA, RT-PCR Negative (Negative); SARS-CoV-2 RNA PCR Negative (Negative)
== END 2024-10-14 10:53 | disposition home or self-care (01) ==
PROVIDERS: PCP Family Medicine; Visit Provider Student in an Organized Health Care Education/Training Program
DX: R06.2 Wheezing (principal); R05.9 Cough, unspecified; R50.9 Fever, unspecified
CPT/HCPCS: 87637

== ENCOUNTER 2024-10-16 16:59 | Outpatient (CLI) | payer MEDICARE, SELFPAY ==
--- NOTE | ~2024-10-16 | XR_ITS ---
CHEST RADIOGRAPH, PA AND LATERAL CLINICAL HISTORY: R06.2 - Wheezing/Cough since Sunday . COMPARISON: 06/16/2024 TECHNIQUE: PA and lateral views of the chest. FINDINGS Large hiatal hernia is present. The remainder of the cardiomediastinal silhouette is otherwise unremarkable. The lungs are clear. IMPRESSION: No focal infiltrate or effusion. Reviewed, dictated and finalized at location A.
--- OUTSIDE RECORDS SUMMARY | 2024-10-16 17:06 | XMS_ITS | Continuity of Care Document ---
Author Organization [facility] Address [address] [place] [address] Phone Care Team Providers Care Garage Attendant Name Role Phone Siva Brito MD Unavailable Unavailable Allergies, Adverse Reactions, Alerts Substance Reaction Status Criticality Sulfa (Sulfonamide Antibiotics) Active No Information Medications Medication Instructions Dosage Effective Dates (start - stop) Status Comments Mobic 15 mg tablet take 1 tablet by oral route every day - Active [place] 5 mg-325 mg tablet take 1 tablet b y oral route every hs prn pain - Active VITAMIN D3 (unknown strength) Not Available - Active BIOTIN (unknown strength) Not Available - Active HYDROCHLOROTHIAZIDE (unknown strength) Not Available - Active NAPROXEN (unknown strength) Not Available - Active CYCLOBENZAPRINE HCL (unknown strength) Not Available - Active Procedures Procedure Date OFFICE/OUTPATIENT VISIT [facility] Advance Directives Directive Yes / No Effective Date File Name No Information Encounters Encounter Description Practice Location Reason(s) For Visit Diagnoses Date Provider Providers Copied on Encounter [facility], [address] [place] [address], [facility], tel:[phone] [facility] No Information 7 Alisha Paniagua. [address] [place] [address], [id number] . tel: [phone] [facility], [address] [place] [address], [id number], tel:[phone] [facility] No Information 7 Alisha Paniagua. [address] [place] [address], [id number] . tel: [phone] OFFICE/OUTPA TIENT VISIT [facility], [address], [place], [address], [phone] [facility] Localized primary osteoarthritis of right lower legLocalized primary osteoarthritis of left lower leg 6 Alisha Paniagua. [address] [place], [place], [id number] . tel: [phone] Family History Family Member Type Diagnosis Age At Onset Father Problem (finding) Liver disease Mother Problem (finding) stroke Father Problem (finding) Payers Payer name Insurance type Covered libertarian ID Authoriza tion(s) [facility] Choice/Choice Plus [id number] Social History Type Description Quantity Date Captured Comments Sex Female Smoking Status No Information Chief Complaint And Reason For Visit No Information Reason For Referral Reason For Referral No Information Plan Of Treatment Date Type Action Status Referral Ordered: RADEX KNE COMPL 4/MORE VIEWS LT ordered Referral Ordered: RADEX KNE COMPL 4/MORE VIEWS RT ordered History Of Present Illness Encounter Date Complaint History Of Prese nt Illness No Information Functional Status Date Functional Assessmen t No Information Instructions Date Instruction Additional Infor mation activity as tolerated Related to Localized primary osteoarthritis of right lower leg apply heating pad or ice as tolerated Related to Localized primary osteoarthritis of right lower leg Assessments Type Assessment Date No Information Patient Care Teams Name Effective Dates (start - stop) Status Members No Information
--- OUTSIDE RECORDS SUMMARY | 2024-10-16 17:06 | XMS_ITS | Data Portability ---
Author Organization [facility] [employer], Main Office Address [address] [place] [address] Assessment No assessment recorded. Plan of Treatment Reminders Order Date Submit Date Provider Last Modified By Organization Details Last Modified Time Details Appointments None recorded. Lab urinalysis, dipstick 2023 [facility] [address], [place], [address], 4 12:39:48 culture, urine + sensitivity [email or web address] ([facility]), [address] [place], [address], 4 09:03:18 Referral None recorded. Procedures None recorded. Surgeries None recorded. Imaging None recorded. Medication Orders solifenacin 10 mg tablet 2023 [email or web address] [facility] [address] [place], [address], 4 14:41:16 epinephrine 0.3 mg/0.3 mL injection, auto-inject or 2023 024 [facility] [address] [place], [address], 4 12:32:24 Patient TargetsNo targets recorded. Patient Instructions Encounter Date Encounter Id Patient Instructions Last Modified By Organization Details Last Modified Time 08/24/2023 [id number] check BP on own [email or web address] Not availa ble 09/04/2023 21:13:46 Reason for Referral None Reported. Results Created Date Observation Date Name Description Value Unit Range Abnormal Flag Note LastModifiedBy Organization Detail LastModifiedTime 06/23/19 23 06/23/2022 urina lysis , dipst ick Leukocytes (reference range: negative flo/ l) Large Not Available [address] , [address], [place], [address], 06/23/2022 09:59:32 06/23/19 23 06/23/2022 urina lysis , dipst ick Nitrite (reference rage: negative mg/dl) positi ve Not Available [address] , [address], [place], [address], 06/23/2022 09:59:32 06/23/19 23 06/23/2022 urina lysis , dipst ick Urobilinogen (reference range: 0.2-1 mg/dl) 1 Not Available [address] , [address], [place], [address], 06/23/2022 09:59:32 06/23/19 23 06/23/2022 urina lysis , dipst ick Protein (reference range: negative mg/dl) 100 Not Available [address] , [address], [place], [address], 06/23/2022 09:59:32 06/23/19 23 06/23/2022 urina lysis , dipst ick pH (reference range: 5-7) 6.0 Not Available [address] , [address], [place], [address], 06/23/2022 09:59:32 06/23/19 23 06/23/2022 urina lysis , dipst ick Blood (reference range: negative Jonel/ l) Large Not Available Z_[address] , [address], [place], [address], 06/23/2022 09:59:32 06/23/19 23 06/23/2022 urina lysis , dipst ick Specific [place] (reference range: 1.005-1.030) 1.015 Not Available Z_[address] , [address], [place], [address], 06/23/2022 09:59:32 06/23/19 23 06/23/2022 urina lysis , dipst ick Ketone (reference range: negative mg/dl) Negati ve Not Available [address] , [address], [place], [address], 06/23/2022 09:59:32 06/23/19 23 06/23/2022 urina lysis , dipst ick Bilirubin (reference range: negative mg/dl) Negati ve Not Available [address] , [address], [place], [address], 06/23/2022 09:59:32 06/23/19 23 06/23/2022 urina lysis , dipst ick Glucose (reference range: negative mg/dl) Negati ve Not Available [address] , [address], [place], [address], 06/23/2022 09:59:32 06/23/19 23 06/23/2022 urina lysis , dipst ick Appearance Turbid Not Available [address] , [address], [place], [address], 06/23/2022 09:59:32 06/23/19 23 06/23/2022 urina lysis , dipst ick Color Yellow Not Available [address], [place], [address], 06/23/2022 09:59:32 08/24/19 24 08/24/2023 urina lysis , dipst ick Leukocytes (reference range: negative flo/ l) Negati ve Not Available [address], [place], [address], 08/24/2023 12:32:52 08/24/19 24 08/24/2023 urina lysis , dipst ick Nitrite (reference rage: negative mg/dl) negati ve Not Available [address], [place], [address], 08/24/2023 12:32:52 08/24/19 24 08/24/2023 urina lysis , dipst ick Urobilinogen (reference range: 0.2-1 mg/dl) 0.2 Not Available [address], [place], [address], 08/24/2023 12:32:52 08/24/19 24 08/24/2023 urina lysis , dipst ick Protein (reference range: negative mg/dl) Negati ve Not Available [address], [place], [address], 08/24/2023 12:32:52 08/24/19 24 08/24/2023 urina lysis , dipst ick pH (reference range: 5-7) 5.5 Not Available [address], [place], [address], 08/24/2023 12:32:52 08/24/19 24 08/24/2023 urina lysis , dipst ick Blood (reference range: negative Jonel/ l) Negati ve Not Available [address], [place], [address], 08/24/2023 12:32:52 08/24/19 24 08/24/2023 urina lysis , dipst ick Specific [place] (reference range: 1.005-1.030) 1.020 Not Available [address], [place], [address], 08/24/2023 12:32:52 08/24/19 24 08/24/2023 urina lysis , dipst ick Ketone (reference range: negative mg/dl) Trace Not Available [address], [place], [address], 08/24/2023 12:32:52 08/24/19 24 08/24/2023 urina lysis , dipst ick Bilirubin (reference range: negative mg/dl) Negati ve Not Available [address], [place], [address], 08/24/2023 12:32:52 08/24/19 24 08/24/2023 urina lysis , dipst ick Glucose (reference range: negative mg/dl) Negati ve Not Available [address], [place], [address], 08/24/2023 12:32:52 08/24/19 24 08/24/2023 urina lysis , dipst ick Appearance Clear Not Available [address], [place], [address], 08/24/2023 12:32:52 08/24/19 24 08/24/2023 urina lysis , dipst ick Color Yellow Not Available [facility] [address], [place], [address], 08/24/2023 12:32:52 05/09/20 21 US chest [facility] [address] [place] [address] [phone] Pedro t Name: HUSAM BONILLA Access ion #: [id number] Sex: F : 1955 3 Locati on: RA2 Attend ing Physic juan: ELKHAT IB, RUNDA Orderi ng Physic juan: ELKHAT IB, RUNDA Exam Date: 2020 2:03 PM Exam Name: US CHEST Admitt ing Diagno sis(es ): RADIOL OGY REPORT - FINAL EXAM: US CHEST HISTOR Y: palpab le area of back 65-yea r-old female with palpab le abnorm ality of the left upper back. COMPAR GEORGE: None availa ble. TECHNI QUE: Focuse d ultras ound evalua tion of the left upper back was perfor med in the area of the patien t's palpab le abnorm ality. FINDIN GS: There is a fairly homoge neous solid mass in the area of the patien t's palpab le abnorm ality which is isoech oic to subcut aneous adipos e tissue , circum scribe d margin s, measur ing up to 6.1 cm longit udinal x 6.1 cm transv erse x 2.4 cm in depth. No abnorm al fluid collec tions are identi fied Page 1 of 2 [facility] H[facility] Access ion #: [id number] Sex: F : 1955 3 Exam Date: 2020 2:03 PM Exam Name: US CHEST Admitt ing Diagno sis(es ): here. 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 Recomm end surgic al consul tation if this lesion is irrita ting to the patien t. Create d and electr onical ly signed by: Jimmy nance MD Signed Date: 2020 3:40 PM (CT) Dictat ed by: Jimmy nance MD DD: 2020 3:40 PM (CT) DT: 2020 3:40 PM (CT) Page 2 of 2 [id number] [facility] (Imaging) [address] [place], [address], 07/26/2022 07:36:21 05/09/20 21 05/09/2021 US, upper back No observ ation record ed. [id number] [facility] [address] [place], [address], 07/26/2022 07:36:21 03/13/20 22 03/13/2022 bone densi ty No observ ation record ed. [id number] [facility] Add On Lab Orders [address] [place], [address], 07/26/2022 07:36:21 03/13/20 22 DEXA, axial skele ton [facility] [address] [place] [address] Patien t Name: HUSAM BONILLA Access ion #: [id number] Sex: F : 1955 6 Locati on: RA2 Attend ing Physic juan: SONU PERRY RUNDAMIR Orderi ng Physic juan: ADIS JOY Exam Date: 2021 1:53 PM Exam Name: XR DEXA AXIAL/ HIP/PE LVIS/S PINE Admitt ing Diagno sis(es ): RADIOL OGY REPORT - FINAL EXAM: XR DEXA AXIAL/ HIP/PE LVIS/S PINE HISTOR Y: risk of osteop orosis COMPAR GEORGE: None. TECHNI QUE: TECHNI QUE: Dual energy x-ray of absorp tion examin ation of the bilate ral hips and lumbar spine in AP projec tion was perfor med. FINDIN GS: Lumbar Spine (L1-L4 ): The mean bone minera l densit y is 1.244 g/cm2 hydrox yapati te, correl ating with a T-scor e of 0.4. Bilate ral hips: The mean bone minera l densit y is 1.029 g/cm2 calciu m hydrox yapati te, correl ating with a T-scor e of 0.2. Page 1 of 2 [facility] Patien t Name: HUSAM BONILLA Access ion #: [id number] Sex: F : 1955 6 Exam Date: 2021 1:53 PM Exam Name: XR DEXA AXIAL/ HIP/PE LVIS/S PINE Admitt ing Diagno sis(es ): IMPRES ELIZABETH: 1. The patien t's lumbar spine T-scor e is consis tent with a normal bone densit y. 2. The patien t's bilate ral hip T-scor e is consis tent with a normal bone densit y. Accord ing to the World Health Organi zation , T-scor e values greate r than -1.0 are normal , values betwee n -1.0 and -2.5 are catego rized as osteop enia, T-scor e of -2.5 or more are catego rized as osteop orosis . Create d and electr onical ly signed by: Art rivers MD Signed Date: 2021 3:02 PM (CT) Dictat ed by: Art rivers MD DD: 2021 3:02 PM (CT) DT: 2021 3:02 PM (CT) Page 2 of 2 [id number] [facility] (Imaging) [address] [place], [address], 07/26/2022 07:36:21 03/14/20 22 MAMMO , scree stiven, digit al, bilat eral [facility] [address], [place] [address] [phone] Pedro kidd Name: HUSAM BONILLA Access ion #: [id number] Sex: F : 1955 6 Locati on: RA2 Attend ing Physic juan: ELKHAT IB, RUNDA Orderi ng Physic juan: ELKHAT IB, RUNDA Exam Date: 2021 1:53 PM Exam Name: DIGITA L NGHIA BILAT SCREEN Admitt ing Diagno sis(es ): RADIOL OGY REPORT - FINAL EXAM: DIGITA L NGHIA BILAT SCREEN HISTOR Y: screen ing mammmo gram COMPAR GEORGE: 2018, 2017 TECHNI QUE: Bilate ral CC and MLO views of the breast s were perfor med. Digita l Mammog yana images were obtain ed. CAD (compu ter assist ed detect ion) was utiliz ed. FINDIN GS: The breast s are almost entire ly fatty. No masses , asymme tries, suspic ious calcif icatio ns, or siobhan ectura l distor tion are seen. Page 1 of [address] [facility] Pedro kidd Name: HUSAM BONILLA Access ion #: [id number] Sex: F : 1955 6 Exam Date: 2021 1:53 PM Exam Name: MG BRAD Ambrocio NGHIA BILAT SCREEN Admitt ing Diagno sis(es ): IMPRES ELIZABETH: BIRADS 1: Assess ment comple te. Negati ve. Recomm end annual screen ing mammog yana. Accord ing to the [employer], yearly mammog amanda are recomm ended starti ng at age 40 and contin uing as long as the woman is in good health . Clinic al Breast Exam should be part of the period ic health exam-a bout every 3 years for women in their 20s and 30s and every year for women 40 and over. Breast self-e xam is an option for women in their 20s. Any breast change noted on the breast self-e xam she would be report ed prompt ly to the [facility] er. A negati ve mammog yana report should not discou rage follow -up or biopsy of a clinic ally signif icant findin g and/or abnorm ality. Dense breast tissue may obscur e small neopla sms. This pedro kidd has been entere d into a mammog yana remind er system with a target date for her next mammog faye. Create d and electr onical ly signed by: Art rivers MD Signed Date: 2021 5:20 PM (CT) Dictat ed by: Art rivers MD DD: 2021 5:20 PM (CT) DT: 2021 5:20 PM (CT) Page 2 of 2 [id number] [facility] ([facility]) [address] [place], [address], 07/26/2022 07:36:21 03/14/20 22 03/13/2022 MAMMO , scree stiven, bilat eral No observ ation record ed. [id number] [facility] On [facility] Orders [address] [place], [address], 07/26/2022 07:36:21 06/08/19 23 06/08/2022 XR, knee, 3 view No observ ation record ed. [id number] [facility] Add On Lab Orders [address] [place], [address], 07/26/2022 07:36:21 10/28/19 23 10/27/2022 elect lilly diogr am No observ ation record ed. [email or web address] Not Available 2022 09:04:06 03/21/20 23 MAMMO , scree stiven, digit al, bilat eral [facility] [address] [place] [address] [phone] Pedro kidd Name: HUSAM BONILLA Access ion #: [id number] Sex: F : 1955 1 Dictat ed By: Mary Weeks Attend ing Physic juan: ELJOSE MARIAAT IB, RUNDA Orderi ng Physic juan: ELKHAT IB, RUNDA Exam Date: 2022 13:53 PM Exam Name: MG DIGITA L NGHIA BILAT SCREEN Admitt ing Diagno sis(es ): CLINIC AL HISTOR Y: Screen ing COMPAR GEORGE STUDY: 2021 TECHNI QUE: Using a full field digita l 2D mammog yana unit CC and MLO views of both breast s are perfor med. FINDIN GS: BREAST COMPOS ITION: The bilate ral breast s are almost entire ly fatty. No suspic ious masses , siobhan ectura l distor tion, asymme tries or suspic ious calcif icatio ns in both breast s. IMPRES ELIZABETH: No eviden ce of malign valentine. Recomm end annual mammog faye. BIRADS : 2 - Benign Electr onical ly Signed by: Mary Weeks at 2022 15:57: 09 PM Page 1 [email or web address] [facility] (Im[facility]) [address] [place], [address], 03/22/2023 12:59:58 03/21/2003/21/2023 MAMMO , scree stiven, bilat eral No observ ation record ed. [email or web address] [facility] [address] [place], [address], 03/22/2023 12:59:58 Result Notes None recorded. Problems Name Problem SNOMED Code Status Onset Date Resolution Date Notes Provider Name and Address Organization Details Recorded Time Acute sinusitis 68555768 Active Not Available [facility] 4 01:06:40 Asthma 890568107 Active Not Available [facility] 4 01:06:40 Lipoma of skin 693935547 Active 2021 Not Available [facility] 4 01:06:40 Osteoarthriti s 689260005 Active Not Available [facility] 4 01:06:40 Hyperlipidemi a 48542380 Active Not Available [facility] 4 01:06:40 Essential hypertension 57868502 Active Not Available [facility] 4 01:06:40 Bronchitis 08918219 Active 2023 [facility] [address], [address], [place], [address] , [facility] [employer] 4 16:15:41 SARS-CoV-2 Active 2023 [facility]SE[facility] [address], [address], [place], [address] , [place] [facility] [employer] 4 11:28:19 Overactive urinary bladder 312865816 Active 2023 OSE[facility] [address], [address], [place], [address] , [employer] [facility] [employer] 4 12:27:53 Acute allergic reaction 853486878 Active 2023 [facility] [address], [address], [place], [address] , [facility] [employer] 4 12:30:58 Urgent desire to urinate 80259942 Active 2023 [facility] [address], [address], [place], [address] , [facility] [employer] 4 12:32:41 Problem Notes None recorded. Procedures Surgical History None recorded. Imaging Results Imaging Date Name Status LastModified by Organization Details LastModified Time 06/08/2022 XR, knee, 3 view completed [id number] [facility] On Lab Orders [address] [place], [address], 07/26/2022 07:36:21 05/09/2021 US chest completed [id number] [facility] ([facility]) [address] [place], [address], 07/26/2022 07:36:21 05/09/2021 US, upper back completed [id number] [facility] [address] [place], [address], 07/26/2022 07:36:21 03/13/2022 bone density completed [id number] [facility] On Lab Orders [address] [place], [address], 07/26/2022 07:36:21 03/14/2022 MAMMO, screening, digital, bilateral completed [id number] [facility] ([facility]) [address] [place], [address], 07/26/2022 07:36:21 03/13/2022 DEXA, axial [id number]. [id number] [facility] ([facility]) [address] [place], [address], 07/26/2022 07:36:21 03/13/2022 MAMMO, screening, bilateral completed [id number] [facility] On Lab Orders [address] [place], [address], 07/26/2022 07:36:21 10/27/2022 electrocardiogram completed [email or web address] Informa tion not available 11/03/2022 09:04:06 03/21/2023 MAMMO, screening, digital, bilateral completed [facility] ([facility]) [address] [place], [address], 03/22/2023 12:59:58 03/21/2023 MAMMO, screening, bilateral completed [email or web address] [facility] [address] [place], [address], 03/22/2023 12:59:58 Procedure Notes None recorded. Medical Equipment None Reported. Allergies Allergen ID Allergen Name Allergen Category Reaction Reaction Severity Criticality Documentation Date Start Date Code Code System Note Provider Name and Address Organization Details Recorded Time 86308 lisinopri l medicatio n Not available Not available Not available 07/26/2022 36126 RxNorm Not Available [facility] 3 07:36:13 69405 Substance with sulfonami de structure and antibacte rial mechanism of action (substanc e) medicatio n Not available Not available Not available 08/03/2023 70398 8003 SNOMED Ryanne Metcalf RN null, [place] - [facility] [employer] 4 11:17:32 Medications Name Sig Start Date Stop Date Status Note LastModified by Organization Details LastModified Time cyclobenz aprine 10 mg tablet TAKE 1 TABLET BY MOUTH THREE TIMES DAILY 08/23 completed Not Available Not Available Not Available amoxicill in 500 mg capsule TAKE FOUR CAPSULES BY MOUTH ONE HOUR BEFORE APPOINTM ENT 08/23 completed Not Available Not Available Not Available promethaz ine-DM 6.25 mg-15 mg/5 mL oral syrup TAKE 5 ML BY MOUTH EVERY 4 HOURS NEEDED FOR 10 DAYS active Not Available Not Available No t Available prednison e 10 mg tablet 04/16 completed Not Available Not Available Not Available albuterol sulfate 2.5 mg/3 mL (0.083 %) solution for nebulizat ion USE 1 VIAL IN NEBULIZE R 4 TIMES DAILY NEEDED active Not Available Not Available No t Available atorvasta tin 10 mg tablet TAKE 1 TABLET BY MOUTH ONCE DAILY 04/13 completed Not Available Not Available Not Available azithromy donna 250 mg tablet TAKE 2 TABLETS BY MOUTH ON DAY 1, AND THEN TAKE 1 TABLET BY MOUTH ONCE A DAY ON DAY 2 THROUGH DAY 5 08/23 completed Not Available Not Available Not Available ibuprofen 800 mg tablet TAKE 1 TABLET EVERY 8 HOURS BY MOUTH NEEDED WITH FOOD active Not Available Not Available No t Available fluconazo le 150 mg tablet Take 1 tablet every day by oral route. 08/23 completed Not Available Not Available Not Available hydrocodo ne 5 mg-acetam inophen 325 mg tablet TAKE 1 TABLET BY MOUTH EVERY 6 HOURS NEEDED 08/23 completed Not Available Not Available Not Available meloxicam 15 mg tablet TAKE 1 TABLET BY MOUTH ONCE DAILY active Not Available Not Available No t Available prednison e 20 mg tablet TAKE 2 TABLETS BY MOUTH TWICE DAILY FOR 2 DAYS, 1 TWICE DAILY X 5 DAYS, ONE-HALF TABLET TWICE A DAY X2 DAYS, ONEHALF TABLET TWICE DAILY X1 DAY active Not Available Not Available No t Available dexametha sone 6 mg tablet Take 1 tablet every day by oral route for 7 days. active Not Available Not Available No t Available sulfasala zine 500 mg tablet,de layed release 07/13 completed Not Available Not Available Not Available penicilli n V potassium 500 mg tablet TAKE 1 TABLET BY MOUTH 4 TIMES DAILY UNTIL ALL TAKEN 03/02 completed Not Available Not Available Not Available phentermi ne 37.5 mg tablet TAKE 1 TABLET BY MOUTH ONCE DAILY IN THE MORNING 04/12 completed Not Available Not Available Not Available amlodipin e 5 mg tablet TAKE 1 TABLET BY MOUTH ONCE DAILY 04/13 completed Not Available Not Available Not Available ciproflox acin 500 mg tablet Take 1 tablet every 12 hours by oral route for 5 days. 08/23 completed Not Available Not Available Not Available hydrocodo ne 10 mg-acetam inophen 325 mg tablet 04/12 completed Not Available Not Available Not Available oxycodone -acetamin ophen 5 mg-325 mg tablet TAKE 1 TO 2 TABLETS BY MOUTH EVERY 6 HOURS NEEDED FOR PAIN MAX 6 DAILY 08/23 completed Not Available Not Available Not Available methotrex ate sodium 2.5 mg tablet TAKE 5 TABLETS BY MOUTH ONCE A WEEK 04/12 completed Not Available Not Available Not Available ferrous sulfate 325 mg (65 mg iron) tablet TAKE 1 TABLET BY MOUTH ONCE DAILY 04/12 completed Not Available Not Available Not Available prednison e 50 mg tablet 07/13 completed Not Available Not Available Not Available omeprazol e 20 mg capsule,d elayed release active Not Available Not Available Not Available diclofena c sodium 75 mg tablet,de layed release Take 1 tablet twice a day by oral route. 04/12 completed Not Available Not Available Not Available folic acid 1 mg tablet TAKE 2 TABLETS BY MOUTH ONCE DAILY 04/12 completed Not Available Not Available Not Available monteluka st 10 mg tablet Take 1 tablet every day by oral route at bedtime. active Not Available Not Available No t Available hydrochlo rothiazid e 25 mg tablet TAKE 1 TABLET BY MOUTH ONCE DAILY 04/12 completed Not Available Not Available Not Available mupirocin 2 % topical ointment 04/12 completed Not Available Not Available Not Available epinephri ne 0.3 mg/0.3 mL injection , auto-inje ctor Use as directed active Not Available Not Available No t Available levofloxa donna 500 mg tablet Take 1 tablet every 24 hours by oral route for 5 days. active Not Available Not Available No t Available Maxitrol 3.5 mg/mL-10, 000 unit/mL-0 .1% eye drops,[employer] pension INSTILL 1 DROP INTO AFFECTED EYE(S) BY OPHTHALM IC ROUTE EVERY 3-4 HOURS 11/12 completed Not Available Not Available Not Available albuterol sulfate HFA 90 mcg/actua tion aerosol inhaler Inhale 2 puffs every 4 hours by inhalati on route as needed. active Not Available Not Available No t Available Vitamin D2 1,250 mcg (50,000 unit) capsule 04/12 completed Not Available Not Available Not Available naproxen 500 mg tablet Take 1 tablet twice a day by oral route. 04/12 completed Not Available Not Available Not Available oxycodone 5 mg tablet TAKE 1 TABLET BY MOUTH EVERY 6 HOURS NEEDED FOR PAIN 08/23 completed Not Available Not Available Not Available cyclobenz aprine 5 mg tablet TAKE 1 TABLET BY MOUTH THREE TIMES DAILY 08/23 completed Not Available Not Available Not Available duloxetin e 20 mg capsule,d elayed release TAKE 1 CAPSULE BY MOUTH ONCE DAILY IN THE MORNING active Not Available Not Available No t Available solifenac in 10 mg tablet Take 1 tablet every day by oral route for 30 days. 09/26 completed caused cramping so pt d/c med Not Available Not Available Not Available chlorhexi dine gluconate 0.12 % mouthwash RINSE 15 ML IN MOUTH TWICE DAILY 04/12 completed Not Available Not Available Not Available hydrochlo rothiazid e 12.5 mg tablet TAKE 1 TABLET BY MOUTH ONCE DAILY active Not Available Not Available No t Available Fluvirin 2504-2681 45 mcg (15 mcg x 3)/0.5 mL intramusc ular suspensio n 07/13 completed Not Available Not Available Not Available Paxlovid 300 mg (150 mg x 2)-100 mg tablets in a dose pack Take 3 tablets twice a day by oral route for 5 days. active Not Available Not Available No t Available Vitals Date Recorded Body mass index (BMI) Body height Oxygen saturation Oxygen saturation in Arterial blood by Pulse oximetry Heart rate Body temperature Body weight Systolic blood pressure Diastolic blood pressure Provider Name and Address Organization Details Last Updated DateTime 1 41.5 kg/m2 162.56 cm 97 % 97 % 92 /min 96.8 [degF] 764455. 35 g 142 mm[Hg] 80 mm[Hg] Not Available [facility] 3 07:29:52 Date Recorded Body mass index (BMI) Body height Oxygen saturation Oxygen saturation in Arterial blood by Pulse oximetry Heart rate Body temperature Body weight Systolic blood pressure Diastolic blood pressure Provider Name and Address Organization Details Last Updated DateTime 2 40.9 kg/m2 162.56 cm 97 % 97 % 90 /min 97.8 [degF] 220499. 98 g 162 mm[Hg] 100 mm[Hg] Not Available [facility] 3 07:29:52 Date Recorded Body height Body mass index (BMI) Body weight Heart rate Body temperature Systolic blood pressure Diastolic blood pressure Provider Name and Address Organization Details Last Updated DateTime 3 162.56 cm 41.9 kg/m2 044635. 54 g 99 /min 98.1 [degF] 130 mm[Hg] 72 mm[Hg] PERLA Cleary [employer] 3 16:32:54 Date Recorded Body height Body mass index (BMI) Body weight Body temperature Heart rate Respiratory rate Oxygen saturation Oxygen saturation in Arterial blood by Pulse oximetry Systolic blood pressure Diastolic blood pressure Provider Name and Address Organization Details Last Updated DateTime 4 162.56 cm 40.5 kg/m2 955748. 8 g 97.3 [degF] 103 /min 16 /min 98 % 98 % 182 mm[Hg] 94 mm[Hg] Ryanne Metcalf RN [employer] 4 12:20:14 Social History None recorded. Functional Status None recorded. Mental Status None recorded. Family History Nothing Reported. Medical History No medical history recorded. Gynecological HistoryNo gynecological history recorded. Obstetrics History GPAL:G 0 P 0 0 0 0 Past Encounters Encounter ID Performer Location Encounter Start Date Encounter Closed Date Diagnosis/Indication Diagnosis SNOMED-CT Code Diagnosis ICD10 Code Diagnosis Note [id number] Adis Costa MD [facility] [place] [address] [facility] [place] [address] 04/12/2021 00:00:00 04/13/2021 06:02:48 [id number] Adis Costa MD [facility] [place] [address] [facility] [place] [address] 03/02/2022 00:00:00 03/02/2022 20:28:54 [id number] Adis Costa MD [facility] [place] [address] [place] [address] [place] [address] 06/23/2022 00:00:00 06/23/2022 16:04:14 [id number] Adis Costa MD [facility] [place] [address] [place] [address] [place] [address] 11/07/2022 16:21:51 11/07/2022 16:57:03 Pre-surgery evaluation 281995880 Z01.818 Cleared for surgery. [id number] Adis Costa MD [facility] [place] [address] [place] [address] [place] [address] 08/24/2023 12:12:12 08/24/2023 12:40:07 Overactive urinary bladder 554748921 N32.81 Acute dhara rgic reaction 741940093 T78.40XD Urgent solitario yoli to urinate 22778453 R39.15 Asthma 899974800 J45.90 9 Essential hypertension 24300337 I10 Hyperlipidemia 41531483 E78.5 Osteoarthritis 896227323 M19.90 Health Concerns Section Related Observation LastModified by Organization Detai ls LastModified Time None Recorded Concern Status LastModified by Organization Details LastModified Time None Recorded Advance Directives Directive None Recorded Payers Encounter Date Sequence Insurance Name Policy Number Policy Patel Covered Member ID Patel Member ID Guarantor Name 11/07/2022 1 [employer] (MEDICARE REPLACEMENT/A DVANTAGE - HMO) Husam Osborn [id number] Husam bass 08/24/2023 1 [employer] (MEDICARE REPLACEMENT/A DVANTAGE - HMO) Husam Garcia Rogelio Osborn [id number] Husam Garcia Patrice bass Notes Date Note Type Note Provider Name and Address Organization Details Recorded Time 11/07/2022 text/html Here today for medical clearance for right knee replacement. Had an ECG in 10/30/22. Has had surgery before no problems with anesthesia. She is doing ok. No chest pain or sob. No known DM. No issues today other than right knee pain. She is scheduled for surgery 11/29/22 for right knee replacement. Adis Costa MD [address] [facility], [facility] [address], [place], [address], [employer] 11/07/2022 19:49:44 08/24/2023 text/html urinary urgency OSEAS Hart [address] [facility], [address], [place], [address], [employer] 09/04/2023 21:14:45 OBGyn Episode No OBEpisode recorded.
--- OUTSIDE RECORDS SUMMARY | 2024-10-16 17:06 | XMS_ITS | Clinical Summary ---
Author Organization [facility] Address [address] [place] [address] Care Team Providers Care Supervisor Title Name Role Phone Adis Costa MD Primary Care Provider [phone] Source Comments [facility],non-owned Affiliates and Associated Physician Practices is amultiple site organization consisting of ambulatory clinics and hospital sitesin [place], [place], [place] and [place]. This disclosure is being madepursuant to the Care Everywhere program and may not contain all information available regarding this patient. Last updated 18.[facility] Allergies Active Allergy Reactions Criticality Noted Date [...] and heating? Not hard at all 11/30/2022 [facility] Occupat ional Health - Occupational Stress [...] place to sleep or slept in a half-way (including now)? No 11/30/2022 Comments No Sex and Gender Information Value Date Recorded Sex Assigned at Not on file Legal Sex Female 5:20 AM [employer]CRA[employer] Gender Identity Not on file Sexual Orientation [...] this topic Medical Devices Implanted Type Area Smt Machine Operator Device Identifier Shelf Expiration Date Model / Serial / Lot Cmnt Bone Cblt 40gm Hvisc Strl Implanted:Qty: 1 on 01/13/2019 by Дмитрий Ndiaye MD at [facility] Left: Knee [employer] 11/21/2019 600-15-000 / / [id number] Cmpnt Ptlr 28mm 1 Pg Wire Ascnt Arcm Kn Implanted:Qty: 1 on 01/13/2019 by Дмитрий Ndiaye MD at [facility] Left: Knee [employer] 12/14/2023 [id number] / / [id number] Tray Tib 71mm Kn Cocr I Beam Implanted:Qty: 1 on 01/13/2019 by Дмитрий Ndiaye MD at [facility] Left: Knee [employer] 10/14/2028 [id number] / / [id number] Cmpnt Fem Kn Lt Cr Cmnt Prm Vngrd Intlk Implanted:Qty: 1 on 01/13/2019 by Дмитрий Ndiaye MD at [facility] Left: Knee [employer] [id number] / / [id number] Brng [id number] Vngrd Arcm Kn Ant Stab Implanted:Qty: 1 on 01/13/2019 by Дмитрий Ndiaye MD at [facility] Left: Knee [employer] 10/15/2023 [id number] / / [id number] Brng [id number] Vngrd Arcm Kn Ant Stab Implanted:Qty: 1 on 11/29/2022 by Дмитрий Ndiaye MD at [facility] Right: Knee [employer] 09/27/2027 [id number] / / [id number] Cmpnt Ptlr Std 28mm 3 Pg Kn Ser A Implanted:Qty: 1 on 11/29/2022 by Дмитрий Ndiaye MD at [facility] Right: Knee [employer] 10/26/2027 [id number] / / [id number] Cmpnt Fem Kn Rt Cr Cmnt Prm Vngrd Intlk Implanted:Qty: 1 on 11/29/2022 by Дмитрий Ndiaye MD at [facility] Right: Knee [employer] 10/17/2032 [id number] / / [id number] Tray Tib 71mm Kn Cocr I Beam Implanted:Qty: 1 on 11/29/2022 by Дмитрий Ndiaye MD at [facility] Right: Knee [employer] 09/04/2032 [id number] / / [id number] Cmnt Bone Plc R 40gm Grn Implanted:Qty: 1 on 11/29/2022 by Дмитрий Ndiaye MD at [facility] Right: Knee [employer] 04/26/2025 [id number] / / [id number] Procedures Procedure Name Priority Date/Time Associated Diagnosis Comments COMPREHENSIVE METABOLIC PANEL STAT 10/26/2022 1:26 PM CDT Preop examination from Last 3 Months or Most Recently Relevant to Health Maintenance Results * (ABNORMAL) COMPREHENSIVE METABOLIC PANEL (10/26/2022 1:26 PM CDT) Glucose 109(H) 70 - 105 mg/dL 10/26/2022 1:56 PM CDT [facility] Sodium 140 136 - 145 mmol/L 10/26/2022 1:56 PM CDT [facility] Potassium 3.8 3.5 - 5.1 mmol/L 10/26/2022 1:56 PM CDT [facility] Chloride 109(H) 98 - 107 mmol/L 10/26/2022 [facility] CO2 21(L) 23 - 31 mmol/L 10/26/2022 1:56 PM CDT [facility] Calcium 9.8 8.4 - 10.4 mg/dL 10/26/2022 1:[address] [facility] Anion Gap 10 8 - 18 mmol/L 10/26/2022 1:56 PM CDT [facility] BUN 13 9.8 - 20.1 mg/dL 10/26/2022 1:56 PM CDT [facility] Creatinine 0.88 0.57 - 1.11 mg/dL 10/26/2022 1:56 PM [facility] Alkaline Phosphatase 98 40 - 150 U/L 10/26/2022 1:56 PM CDT [facility] ALT 12 0 - 61 U/L 10/26/2022 1:56 PM CDT [facility] AST 21 5 - 34 U/L 10/26/2022 1:56 PM [facility] Protein Total 8.1 6.4 - 8.3 gm/dL 10/26/2022 1:56 PM [facility] Albumin 4.3 3.2 - 4.6 gm/dL 10/26/2022 1:56 PM [facility] Bilirubin Total 0.9 0.2 - 1.2 mg/dL 10/26/2022 1:56 PM [facility] eGFR by CKD-EPI 72(L) >=90 mL/min/1.7 3 m2 10/26/2022 1:56 PM [facility] Blood BLOOD SPECIMEN / Unknown Venipuncture / Unknown 10/26/2022 1:26 PM CDT 10/26/2022 1:39 PM CDT Aura Donahue MANAGER [employer] DELIVERY RN LAB - CHEMISTRY OR DERABLES Final Result [facility] [address] [place] [address] from Last 3 Months or Most Recently Relevant to Health Maintenance Insurance [place] [address] Advance Directives * Full Code (Latest Code Status on File) Date Activated Date Inactivated Comments 11/29/2022 9:46 AM 11/30/2022 6:24 PM * Full Code Date Activated Date Inactivated Comments 01/13/2019 12:40 PM 01/16/2019 4:08 PM Care Teams Supervisor Title Relationship Specialty Start Date End Date Adis Costa MD [facility] [place] [address] PCP - General Family Medicine 03/16/22
--- OUTSIDE RECORDS SUMMARY | 2024-10-16 17:06 | XMS_ITS | Patient Health Record ---
Author Organization [facility] Address [address] [place] [address] Care Team Providers Care Leather Staker Name Role Phone Natty Agustin Unavailable [phone] Reason For Referral No Information Medications Medication SIG (Take, Route, Frequency, Duration) Notes Start Date End Date Status Biotin 5 MG Oral Active Phentermine HCl 37.5 MG Oral Active Methotrexate Sodium 2.5 MG TAKE 5 TABLET S BY MOUTH ONCE A WEEK Oral 09/02/2019 Active Ferrous Sulfate 325 (65 Fe) MG take 1 tablet (325 mg) by oral route once daily Oral 1 Active Cyclobenzaprine HCl 5 MG take 1 tablet ( 5 mg) by oral route 3 times per day Oral 3 Active Plan Of Treatment No Information Insurance Providers Payer Name Payer Address Payer Phone Subscriber Number Group Number Insured Name Patient Relationship to Insured Coverage Start Date Coverage End Date [place] [address] [place] [address] [id number] Husam Ng Self - patient is the insured [facility] [address] [place], [place] [id number] [phone] [id number] Husam Ng Self - patient is the insured 8 Medical (General) History Surgical History Surgery Date(Month/Year) Breast reduction; 2018-02-09 Appendectomy; 2018-02-09 Foot surgery; 2018-02-09 rotator cuff repair; 2018-02-09 cholecystectomy; 2018-02-09
== END 2024-10-16 17:00 | disposition home or self-care (01) ==
PROVIDERS: PCP Family Medicine; Visit Provider Student in an Organized Health Care Education/Training Program
DX: R05.9 Cough, unspecified (principal); R06.2 Wheezing; R50.9 Fever, unspecified
CPT/HCPCS: 71046